=== PATIENT | female | born 1990 | race Caucasian/White ===

== ENCOUNTER 2017-04-15 08:15 | Emergency (ER) | END 2017-04-15 09:18 | disposition home or self-care (01) ==

== ENCOUNTER 2017-06-10 14:34 | Emergency (ER) | END 2017-06-10 18:49 | disposition home or self-care (01) ==

== ENCOUNTER 2018-06-05 10:41 | Emergency (ER) | payer MEDICAID ==
[~2018-06-05] VITALS: Ht 165.1 cm; Wt 90.0 kg
[~2018-06-05 10:41] MED LIST: ALBU8.5H8 INH; D-ME473S2 PO; DOXY100C PO; PRED20TA PO
[2018-06-05 10:52] VITALS: BP 136/62; PULSE 113; RESP 20; Ht 165.1 cm; Wt 90.0 kg
[2018-06-05] MEDS ORDERED: ACETAMINOPHEN 325 MG TAB PO ONE (12:00)
[2018-06-05] MEDS ORDERED: ACET500C5 PO (12:34)
[2018-06-05] MEDS ORDERED: OSEL75CA23 PO (12:34)
[2018-06-05] MEDS ORDERED: D-ME473S2 PO (12:36)
--- NOTE | 2018-06-05 12:36 | ERD ---
ER Documentation Chief Complaint Chief Complaint pt bib self with cough and runny nosex 3 days, 32 wks preg, no complaints HPI 27-year-old female presents with cough congestion body aches for the last 3 days. She is 36 weeks by dates. She denies abdominal pain, vaginal bleeding, shortness breath or chest pain. ROS All systems reviewed and are negative except as per history of present illness. Medications Home Meds Active Scripts Dextromethorphan Hb-Promethazine Hcl* (Promethazine DM* Syrup) 473 Ml Syrup, 5 ML PO Q6 PRN for COUGH for 5 Days, ML Prov:ANJELICA VAUGHN MD 06/05/18 Acetaminophen* (Tylophen*) 500 Mg Capsule, 1 CAP PO Q6H PRN for PAIN AND OR ELEVATED TEMP, #15 CAP Prov:ANJELICA VAUGHN MD 06/05/18 Oseltamivir Phosphate* (Tamiflu*) 75 Mg Capsule, 75 MG PO BID for 5 Days, CAP Prov:ANJELICA VAUGHN MD 06/05/18 Prednisone* (Prednisone*) 20 Mg Tab, 60 MG PO DAILY for 4 Days, TAB Prov:ROSIE JOHNSON 06/10/17 Albuterol Sulfate* (Proair HFA*) 8.5 Gm Hfa.aer.ad, 2 PUFF INH Q4, #1 INHALER Prov:ROSIE JOHNSON 06/10/17 Doxycycline* (Vibramycin*) 100 Mg Capsule, 100 MG PO BID for 7 Days, EA Prov:ROSIE JOHNSON 06/10/17 Dextromethorphan Hb-Promethazine Hcl* (Promethazine DM* Syrup) 473 Ml Syrup, 5 ML PO Q6 PRN for COUGH, #100 ML Prov:JAMES JENKINS PA-C 04/15/17 Allergies Allergies: Coded Allergies: No Known Allergy (Unverified , 06/05/18) PMhx/Soc History of Surgery: No Anesthesia Reaction: No Hx Neurological Disorder: No Hx Respiratory Disorders: No Hx Cardiac Disorders: No Hx Psychiatric Problems: No Hx Miscellaneous Medical Probl: No Hx Alcohol Use: No Hx Substance Use: No Hx Tobacco Use: No Smoking Status: Never smoker FmHx Family History: No diabetes, No coronary disease, No other Physical Exam Vitals Vital Signs Date Temp Pulse Resp B/P (MAP) Pulse Ox O2 O2 Flow FiO2 Time Delivery Rate 06/05/18 100.8 11:50 06/05/18 100.8 113 20 136/62 97 10:52 (86) Physical Exam Const: No acute distress Head: Atraumatic Eyes: Normal Conjunctiva ENT: Normal External Ears, Nose and Mouth. TMs normal. Nasal congestion. Neck: Full range of motion. No meningismus. Resp: Clear to auscultation bilaterally. Coarse cough without rales, wheezing or retractions. Cardio: Regular rate and rhythm, no murmurs Abd: Soft, non tender, non distended. Normal bowel sounds Skin: No petechiae or rashes Back: No midline or flank tenderness Ext: No cyanosis, or edema Neur: Awake and alert Psych: Normal Mood and Affect Results 24 hrs Current Medications Medications Dose Sig/Llay Start Time Status Last (Trade) Ordered Route PRN Stop Time Admin Dose Reason Admin 650 mg ONCE ONCE 06/05/18 DC 06/05/18 Acetaminophen PO 12:00 11:50 (Tylenol 06/05/18 12:01 Tab) Procedures/MDM Influenza swab positive for A. Patient presents with cough and congestion body aches and positive influenza. She has evidence of hypoxemia, rest or stress. She will treated with promethazine, Tylenol, Tamiflu given high risk status, primary care follow-up and return precautions. The patient was stable with no new complaints during the ER course. Clinically, there is no current evidence to suggest meningitis, sepsis, acute abdomen, pneumonia, stroke, acute coronary syndrome, pulmonary embolism, aortic dissection or any other emergent condition appearing to require further evaluation or hospitalization. Patient counseled regarding my diagnostic impression and care plan. Prior to discharge all questions answered. Pt agrees with treatment plan and understands strict return precautions. Pt is instructed to follow up with primary care provider within 24- 48 hours. Precautionary instructions provided including instructions to return to the ER if not improving or for any worsening or changing symptoms or concerns. Departure Diagnosis: Primary Impression: Influenza Condition: Stable Patient Instructions: Influenza (Adult) Additional Instructions: examen positivo para flu. es un virus que dura 2-7 hernandez. cheque otro vez en el proximo ramy para mas simptomas- vomito, dolor, katherine, problemas con respirando, o con martinez doctor primario. ANJELICA VAUGHN MD Jun 05, 2018 12:36
== END 2018-06-05 12:49 | disposition home or self-care (01) ==
LOC: FTE 10:41
DX: J10.1 Influenza due to other identified influenza virus with other respiratory manifestations (principal)
CPT/HCPCS: 87400; Z7502; Z7610; 99283

== ENCOUNTER 2018-06-26 18:07 | Inpatient (IN) | payer MEDICAID ==
[~2018-06-26] VITALS: Ht 165.1 cm; Wt 86.8 kg
[~2018-06-26 18:07] MED LIST changes: +ACET500C5 PO; +OSEL75CA23 PO; +PHENYLephrine 10 MG INJ ONE
[2018-06-26 18:40] VITALS: Ht 165.1 cm; Wt 86.8 kg
[2018-06-26 18:41] VITALS: BP 128/75; PULSE 98; RESP 19
[2018-06-26] MEDS ORDERED: LACTATED RINGER'S 1,000 ML IV SCH (18:42)
[2018-06-26] MEDS ORDERED: OXYTOCIN 30 UNITS/LR 500 ML IV PRN (19:00)
[2018-06-26] MEDS ORDERED: METHYLERGONOVINE 0.2 MG INJ IM PRN (19:00)
[2018-06-26] MEDS ORDERED: MISOPROSTOL 200 MCG TAB PR PRN (19:00)
[2018-06-26] MEDS ORDERED: CARBOPROST 250 MCG INJ IM PRN (19:00)
[2018-06-26] MEDS ORDERED: OXYTOCIN 30 UNITS/LR 500 ML IV SCH (19:00)
[2018-06-26] MEDS ORDERED: CEFAZOLIN 2 GM/50 ML (PMX) 50 ML IVPB SCH (19:00)
[2018-06-26] MEDS ORDERED: CITRIC ACID/NA CITRATE 30 ML CUP PO ONE (20:00)
--- NOTE | 2018-06-26 22:06 | PREAC ---
Date/Time of Note Date/Time of Note DATE: 06/26/18 TIME: 22:02 Anesthesia Eval and Record Evaluation Time Pre-Procedure Interview DATE: 06/26/18 TIME: 22:02 Age 27 Sex female NPO: 8 hrs Preoperative diagnosis repeat c section Planned procedure c section Past Medical History Past Medical History: Includes : : (2) Surgery & Anesthesia Issues No known issue Meds Anticoagulation: No Beta Anton within 24 hr: No Reason Beta Anton not given: Pt. not on B-Anton Active Scripts Dextromethorphan Hb-Promethazine Hcl* (Promethazine DM* Syrup) 473 Ml Syrup, 5 ML PO Q6 PRN for COUGH for 5 Days, ML Prov:ANJELICA VAUGHN MD 06/05/18 Acetaminophen* (Tylophen*) 500 Mg Capsule, 1 CAP PO Q6H PRN for PAIN AND OR ELEVATED TEMP, #15 CAP Prov:ANJELICA VAUGHN MD 06/05/18 Oseltamivir Phosphate* (Tamiflu*) 75 Mg Capsule, 75 MG PO BID for 5 Days, CAP Prov:ANJELICA VAUGHN MD 06/05/18 Prednisone* (Prednisone*) 20 Mg Tab, 60 MG PO DAILY for 4 Days, TAB Prov:ROSIE JOHNSON 06/10/17 Albuterol Sulfate* (Proair HFA*) 8.5 Gm Hfa.aer.ad, 2 PUFF INH Q4, #1 INHALER Prov:ROSIE JOHNSON 06/10/17 Doxycycline* (Vibramycin*) 100 Mg Capsule, 100 MG PO BID for 7 Days, EA Prov:ROSIE JOHNSON 06/10/17 Dextromethorphan Hb-Promethazine Hcl* (Promethazine DM* Syrup) 473 Ml Syrup, 5 ML PO Q6 PRN for COUGH, #100 ML Prov:JAMES JENKINS PA-C 04/15/17 Current Medications Lactated Ringer's 1,000 ml @ 125 mls/hr Q8H IV Last administered on 06/26/18at 18:55; Admin Dose 125 MLS/HR; Start 06/26/18 at 18:42 Cefazolin Sodium/ Dextrose 50 ml @ 100 mls/hr ONCE IVPB ; Start 06/26/18 at 19:00 Oxytocin/Lactated Ringer's 500 ml @ 125 mls/hr POST IV ; Start 06/26/18 at 19:00 Oxytocin/Lactated Ringer's 500 ml @ 0 mls/hr ONCE PRN IV .VAGINAL BLEEDING; Start 06/26/18 at 19:00 Methylergonovine Maleate (Methergine) 0.2 mg ONCE PRN IM .VAGINAL BLEEDING; Start 06/26/18 at 19:00 Carboprost Tromethamine (Hemabate) 250 mcg ONCE PRN IM .VAGINAL BLEEDING; Start 06/26/18 at 19:00 Misoprostol (Cytotec) 1,000 mcg ONCE PRN SC .VAGINAL BLEEDING; Start 06/26/18 at 19:00 Meds reviewed: No Allergies Coded Allergies: No Known Allergy (Unverified , 06/05/18) Allergies Reviewed: No Labs/Studies Labs Reviewed: Reviewed by anesthesiologist Result Diagram: 06/26/18 1845 Laboratory Tests 06/26/18 18:45 Blood Bank Test 06/26/18 18:45 Antibody Screen NEGATIVE Blood Type O POSITIVE Rh Immune Globulin Candidate NO test: Positive Studies: ECG (n/a), CXR (n/a) Pre-procedure Exam Last vitals Vital Signs Date Temp Pulse Resp B/P (MAP) Pulse Ox O2 O2 Flow FiO2 Time Delivery Rate 06/26/18 98.1 98 19 128/75 Room Air 18:41 (92) Airway: Adequate mouth opening Mallampati: Mallampati I Teeth: Normal Lung: Normal Heart: Normal ASA Physical Status ASA physical status: 2 Emergency: None Planned Anesthetic Neuraxial: Spinal Planned Pain Management Sub-arachniod narcotics Pre-operative Attestations Prior to commencing anesthesia and surgery, the patient was re-evaluated, there was verification of: *The patient's identity *The results of appropriate recent lab work and preoperative vital signs *The above evaluation not changing prior to induction *Anesthetic plan, risk benefits, alternative and complications discussed with patient/family; questions answered; patient/family understands, accepts and wishes to proceed. LOC LENNON MD Jun 26, 2018 22:06
[2018-06-26] MEDS ORDERED: KETOROLAC 30 MG INJ ONE (22:16)
[2018-06-26] MEDS ORDERED: OXYTOCIN 30 UNITS/LR 500 ML IV ONE (22:16)
[2018-06-26] MEDS ORDERED: METOCLOPRAMIDE 10 MG INJ ONE (22:16)
[2018-06-26] MEDS ORDERED: ONDANSETRON 4 MG INJ ONE (22:16)
[2018-06-26] MEDS ORDERED: morphine SULFATE/PF (10 MG/10 ML) INJ ONE (22:16)
--- NOTE | 2018-06-26 22:30 | HP ---
Date/Time of Note Date/Time of Note DATE: 06/26/18 TIME: 22:28 OB - History Hx of Present Free Text/Dictation 27 years old 2 para 1001 with single intrauterine at 39 weeks and previous delivery desires repeat delivery. She declined TOLAC. She states good movement. She denies nausea, vomiting, shortness of breath, chest pain, headache, visual changes, vaginal bleeding or LOF. Chief Complaint: Scheduled for repeat delivery Estimated Due Date: Jul 03, 2018 : 2 Para: 1 Spontaneous : 0 Therapeutic : 0 Care: Good Care Ultrasounds: Normal mid trimester US Obstetrical Complications: None Medical Complications: None Past Family/Social History * Past Medical, Surgical, Family and Obstetric Histories reviewed from chart. Blood Type: O+ Rubella: immune RPR/VDRL: Negative GBS Status: Negative HBsAG: Negative OB Admission Exam Vital Signs Vital Signs Vital Signs Date Temp Pulse Resp B/P (MAP) Pulse Ox O2 O2 Flow FiO2 Time Delivery Rate 06/26/18 98.1 98 19 128/75 Room Air 18:41 (92) Physical Exam HEENT: WNL Heart: Rhythm Normal Lungs: Clear Abdomen: WNL Extremities: Normal Membranes: Intact Heart Rate: 130's Accelerations: Accelerations Present Decelerations: No Decelerations Varibility: Moderate Last 72 hours Lab Results CBC & BMP 06/26/18 18:45 OB Assessment/Plan Other plan: 27 years old 2 para 1001 with previous delivery at 39 weeks desires repeat delivery. - FHR: No sign of metabolic acidosis- Category I - Continuous EFM, toco - CBC, blood type and screen - Please see the orders - O+/Rubella: Immune - GBS: Negative The risk of delivery including but not limited to bleeding, infection, injury to other organs (bowel, bladder, ureter, vessels, nerves), injury to fetus, blood transfusion, blood transfusion related infection, risk of anesthesia, adhesion, needs for future , removal of uterus or any other indicated surgery was discussed with the patient and her family. She expressed understanding. All of her questions were answered. She signed the informed consent. PHYSICIAN'S VERIFICATION OF INFORMED CONSENT The patient was counseled regarding the procedure, its indications, risks, potential complications and alternatives and any questions were answered. Consent was obtained. PLANNED PROCEDURE/TREATMENT: delivery with possible using vacuum/forceps and any other indicated surgery PHYSICIAN'S VERIFICATION OF INFORMED CONSENT FOR BLOOD TRANSFUSION: There is a reasonable possibility that blood transfusion will be necessary as a result of the patient's procedure. I have discussed the following with the patient/patient's legal field sales representative: An explanation of the benefits and risk s of the transfusion of blood or blood products and the possible alternatives. All questions have been answered to the patient's satisfaction. INFORMED CONSENT:The patient has been informed of: The nature of the proposed care, treatment, services, medications, interventions or procedures. Potential benefits, risks or side effects, including potential problems related to recuperation. The likelihood of achieving care treatment and service goals. Reasonable alternatives to the proposed care, treatment and service. The relevant risks, benefits and side effects related to alternatives, inclu ding the possible results of not receiving care, treatment and services. When indicated, any limitations on the confidentiality of information learned from or about the patient. If appropriate, the risks, benefits and alternatives of the drugs to be used for sedation/analgesia including moderate sedation. If appropriate, patient has been provided information on the risks, benefits and alternatives to the transfusion of blood and/or blood products. If appropriate, patient has been provided information regarding the [employer] Blood Act. EUGENIO SIMPSON Jun 26, 2018 22:30
--- NOTE | 2018-06-26 23:43 | OPR ---
Operative Report Planned Procedure Procedure date Jun 26, 2018 Procedure(s) Repeat low transverse delivery Performed by see signature line [employer] Repairer: SIMONA MOON MD Anesthesiologist: LOC LENNON MD Pre-procedure diagnosis 27 years old 2 para 1001 with previous delivery at 39 weeks desires repeat delivery. [id number] Anesthesia Type: [id number] spinal Post-Procedure Post-procedure diagnosis 27 years old 2 para 1001 with previous delivery at 39 weeks desires repeat delivery. Findings 1. Normal uterus, fallopian tubes and ovaries 2. Viable female in cephalic presentation. 9 at one minute and 9 in 5 minutes. Weight: 7 pounds 9 ounces. Time of delivery: 22:51 3. Placenta with three vessel cord 4. Amniotic fluid - Clear Estimated Blood Loss: 500 - 600 mls Specimen(s) none Grafts/Implant(s) none Complication(s) none Pt Condition post procedure: stable Disposition: PACU Procedure Description INDICATION AND HISTORY: A 27 years old 2 para 1001 with previous delivery at 39 weeks desires repeat delivery. The risk of delivery including but not limited to bleeding, infection, injury to other organs (bowel, bladder, ureter, vessels, nerves), injury to fetus, blood transfusion, blood transfusion related infection, risk of anesthesia, adhesion, needs for future , removal of uterus or any other indicated surgery was discussed with the patient and her family. She expressed understanding. All of her questions were answered. She signed the informed consent. DESCRIPTION OF OPERATION: The patient was taken to the operating room, where she was identified and the procedure was verified. The patient received two gram of Ancef 30 minutes prior to surgery. Spinal anesthesia was placed. The patient placed in the dorsal supine position with a left tilt. The heart rate was 130 bpm. The patient was then prepped and draped in the normal sterile fashion. A Pfannenstiel skin incision was made and carried down to the fascia with knife. The fascia was incised in the midline and the fascial incision was carried laterally with knife. The superior portion of the fascial incision was then grasped with Aaron clamps and tented up and dissected off the underlying rectus muscle with sharp dissection. The lower portion of the fascial incision was then made in a similar fashion. The rectus muscle was and the peritoneum was entered. The peritoneal incision was then stretched and an Ion retractor was inserted. Then, an incision was made in the lower uterine segment in a transverse fashion with a knife and extended bluntly. Vacuum used to assist delivery of head, the was delivered atraumatically in cephalic presentation with the above findings. The umbilical cord was clamped and cut. The neonatology resuscitation team was present and the baby was handed to them. A cord blood sample was obtained for further evaluation. The placenta and membrane, which appeared normal were Removed. The uterus was exteriorized and cleared of all clot and debris. The uterus was then closed in a two layer fashion with 0-Monocryl. At the time of closure, hemostasis was noted. The gutters were irrigated. The peritoneum was reapproximated with 3-0 Vicryl. The muscle was reapproximated with 3-0 Vicryl. The fascia was approximated with 0- Vicryl in a running fashion. The subcutaneous tissue was re approximated with 3- 0 vicryl. The skin was closed with 4-0 Monocryl. All instruments, sponges and needle counts were correct x3. The patient tolerated the procedure well. She transferred to the recovery room in stable condition. EUGENIO SIMPSON Jun 26, 2018 23:43
[2018-06-27] MEDS ORDERED: DIPHENHYDRAMINE 50 MG INJ IV PRN ×2
[2018-06-27] MEDS ORDERED: ONDANSETRON 4 MG INJ IV PRN ×2
[2018-06-27] MEDS ORDERED: morphine (1 MG/ML) 10ML SYRINGE IV PRN ×3
[2018-06-27] MEDS ORDERED: morphine 2 MG INJ IV PRN ×3
[2018-06-27] MEDS ORDERED: KETOROLAC 30 MG INJ IV PRN
[2018-06-27] MEDS ORDERED: NALOXONE (0.4 MG/ML) INJ IV PRN
[2018-06-27 02:00] VITALS: BP 111/57; PULSE 77; RESP 19
[2018-06-27] MEDS: DEXTROSE 5%-LR 1,000 ML IV SCH ×3 (02:02→14:12)
[2018-06-27] MEDS ORDERED: OXYTOCIN 30 UNITS/LR 500 ML IV SCH (02:02)
[2018-06-27] MEDS ORDERED: CARBOPROST 250 MCG INJ IM PRN (02:30)
[2018-06-27] MEDS ORDERED: OXYTOCIN 30 UNITS/LR 500 ML IV PRN (02:30)
[2018-06-27] MEDS ORDERED: METHYLERGONOVINE 0.2 MG TAB PO PRN (02:30)
[2018-06-27] MEDS ORDERED: MISOPROSTOL 200 MCG TAB PR PRN (02:30)
[2018-06-27] MEDS ORDERED: METHYLERGONOVINE 0.2 MG INJ IM PRN (02:30)
[2018-06-27] MEDS ORDERED: LANOLIN HPA 1 PKT TOP PRN (02:30)
[2018-06-27 03:00] VITALS: BP 107/52; PULSE 75; RESP 19
--- NOTE | 2018-06-27 06:53 | PAC ---
Date/Time of Note Date/Time of Note DATE: 06/27/18 TIME: 06:53 Post-Anesthesia Notes Post-Anesthesia Note Last documented vital signs Vital Signs Date Temp Pulse Resp B/P (MAP) Pulse Ox O2 O2 Flow FiO2 Time Delivery Rate 06/27/18 98.0 75 19 107/52 96 Room Air 03:00 (70) Activity: WNL Respiratory function: WNL Cardiovascular function: WNL Mental status: Baseline Pain reasonably controlled: Yes Hydration appropriate: Yes Nausea/Vomiting absent: No LOC LENNON MD Jun 27, 2018 06:53
--- NOTE | 2018-06-27 06:54 | OPPN ---
Date/Time of Note Date/Time of Note DATE: 06/27/18 TIME: 06:53 Anesthesia Follow up Anesthesia Follow up Last documented vital signs Vital Signs Date Temp Pulse Resp B/P (MAP) Pulse Ox O2 O2 Flow FiO2 Time Delivery Rate 06/27/18 98.0 75 19 107/52 96 Room Air 03:00 (70) Respiratory function: WNL Cardiovascular function: WNL Comments A 27 year female s/p duramorph for post op apin POD #1 is fine. No pain, headache, itching, N/V. neural deficit. LOC LENNON MD Jun 27, 2018 06:54
[2018-06-27 08:25] VITALS: BP 117/63; PULSE 80; RESP 18
[2018-06-27] MEDS ORDERED: DIPHTH/TET/ACEL PERTUSS (ADULT) 0.5 ML VIAL IM* ONE (11:00)
[2018-06-27 11:55] VITALS: BP 117/68; PULSE 83; RESP 18
[2018-06-27 16:40] VITALS: BP 102/60; PULSE 85; RESP 18
--- NOTE | 2018-06-27 17:07 | PN ---
Date/Time of Note Date/Time of Note DATE: 06/27/18 TIME: 17:03 OB Subjective Subjective Subjective passing flatus but no B.M still have marie catheter not oob yet OB Objective Objective Objective vss afebrile abdomen soft wound dry lochia min calf neg for tenderness OB Assessment/Plan Other Assessment: s/p C/S #1 table Plan: Expectant Management GERALD GONSALES MD Jun 27, 2018 17:07
[2018-06-27 20:15] VITALS: BP 114/68; PULSE 82; RESP 19
[2018-06-27] MEDS: IBUPROFEN 800 MG TAB PO SCH (23:06)
[2018-06-27] MEDS: HYDROCODONE/APAP (5/325) TAB PO SCH (23:06)
[2018-06-27] MEDS: SENNA/DOCUSATE NA (8.6MG/50MG) TAB PO SCH (23:09)
[2018-06-28] MEDS ORDERED: HYDROCODONE/APAP (5/325) TAB PO PRN
[2018-06-28] MEDS: DEXTROSE 5%-LR 1,000 ML IV SCH ×2 (01:16→02:02)
[2018-06-28 04:30] VITALS: BP 106/58; PULSE 72; RESP 19
[2018-06-28] MEDS ORDERED: IBUPROFEN 800 MG TAB PO SCH (06:00)
[2018-06-28] MEDS ORDERED: HYDROCODONE/APAP (5/325) TAB PO SCH (06:00)
[2018-06-28] MEDS: HYDROCODONE/APAP (5/325) TAB PO SCH ×3 (06:11→23:31)
[2018-06-28] MEDS: IBUPROFEN 800 MG TAB PO SCH ×3 (06:11→23:30)
[2018-06-28 09:00] VITALS: BP 107/69; PULSE 86; RESP 18
[2018-06-28] MEDS: SENNA/DOCUSATE NA (8.6MG/50MG) TAB PO SCH ×2 (09:18→23:30)
[2018-06-28 16:00] VITALS: BP 111/64; PULSE 73; RESP 18
--- NOTE | 2018-06-28 17:19 | PN ---
Date/Time of Note Date/Time of Note DATE: 06/28/18 TIME: 17:17 OB Subjective Subjective Subjective POD#2 Patient is doing well. She denies nausea, vomiting, shortness of breath, chest pain, headache. She has been ambulating without difficulty, tolerating regular diet. Pain is well controlled on current medications OB Objective Objective Objective VS - Last 72 Hours, by Label Date Temp Pulse Resp B/P (MAP) Pulse Ox O2 O2 Flow FiO2 Time Delivery Rate 06/28/18 97.5 86 18 107/69 Room Air 09:00 (82) 06/28/18 98.1 72 19 106/58 Room Air 04:30 (74) 06/27/18 98.4 82 19 114/68 Room Air 20:15 (83) 06/27/18 99.2 85 18 102/60 Room Air 16:40 (74) 06/27/18 98.7 83 18 117/68 97 Room Air 11:55 (84) 06/27/18 98.2 80 18 117/63 98 Room Air 08:25 (81) 06/27/18 98.0 75 19 107/52 96 Room Air 03:00 (70) 06/27/18 98.2 77 19 111/57 97 Room Air 02:00 (75) 06/26/18 98.1 98 19 128/75 Room Air 18:41 (92) General: AAO X 3, comfortable, NAD, appropriate mood and affect. ABD: +BS. Soft, non-tender. Uterus 2 cm below umbilicus Incision: Clear, dry, intact. No erythema, drainage or induration. Flank: No CVA tenderness (B/L) LE: Mild edema. No clubbing, cyanosis, thigh or calf tenderness (B/L). Homans 'sign is negative OB Assessment/Plan Other plan: 27 years old s/p repeat delivery at 39 weeks. POD#2 - AF, VSS - Baby is doing well, at bed side. She is bonding well - Contraception methods with R/B/A/FR discussed - Continue care - Discharge home tomorrow - Rx and instruction given - Follow up in one and 6 weeks EUGENIO SIMPSON Jun 28, 2018 17:19
--- NOTE | 2018-06-28 17:20 | DS ---
Date/Time of Note Date/Time of Note DATE: 06/28/18 TIME: 17:19 Obstetrical Discharge Record Final Diagnosis Final Diagnosis: Term delivered Other Final Diagnosis 27 years old s/p repeat delivery at 39 weeks. POD#2. His course was unremarkable. She is ambulating and tolerating regular diet. She is voiding without difficulty. Pain is well controlled on current medication. - AF, VSS - Baby is doing well, at bed side. She is bonding well - Contraception methods with R/B/A/FR discussed - Continue care - Discharge home tomorrow - Rx and instruction given - Follow up in one and 6 weeks Section Section: Repeat Condition on Discharge Physical Assessment Last Vitals: Vital Signs Date Temp Pulse Resp B/P (MAP) Pulse Ox O2 O2 Flow FiO2 Time Delivery Rate 06/28/18 97.5 86 18 107/69 Room Air 09:00 (82) 06/27/18 97 11:55 Voiding: Yes Bowel Movement: Yes Breast: Soft, non-tender Fundus: Firm Calf Tenderness: No Patient Condition: Stable EUGENIO SIMPSON Jun 28, 2018 17:20
[2018-06-28 20:30] VITALS: BP 131/81; PULSE 86; RESP 19
[2018-06-28] MEDS ORDERED: MAGNESIUM HYDROXIDE 30ML CUP PO ONE (21:00)
[2018-06-29 04:15] VITALS: BP 108/73; PULSE 74; RESP 19
[2018-06-29] MEDS: IBUPROFEN 800 MG TAB PO SCH ×2 (06:02→14:35)
[2018-06-29] MEDS: HYDROCODONE/APAP (5/325) TAB PO SCH ×2 (06:02→14:35)
[2018-06-29 08:00] VITALS: BP 113/61; PULSE 76; RESP 18
[2018-06-29] MEDS: SENNA/DOCUSATE NA (8.6MG/50MG) TAB PO SCH (08:37)
[2018-06-29] MEDS ORDERED: MEASLES,MUMPS,RUBELLA VACCINE INJ SC* ONE (09:00)
[2018-06-29] MEDS ORDERED: DIPHTH/TET/ACEL PERTUSS (ADULT) 0.5 ML VIAL IM* ONE (09:00)
[2018-06-29 13:20] VITALS: BP 115/67; RESP 18
--- NOTE | 2018-06-30 15:08 | DELSUM ---
Delivery Summary A-C Datetime Report Generated by CPN: 06/30/2018 15:08 DELIVERY PERSONNEL Sports Bookmaker: Willis, Yudelka MATERNAL INFORMATION Delivery Anesthesia: Spinal Medications in Delivery: SEE ANESTHESIA RECORD Delivery QBL (ml): 600 Placenta Cultured: No Maternal Complications: None LABOR SUMMARY EDC: 07/03/2018 00:00 No. Babies in Womb: 1 Attempted: No Labor Anesthesia: SPINAL LABOR INFORMATION Reason for Induction: Not Applicable Oxytocin: N/A Group B Beta Strep: Negative Antibiotics # of Doses: 1 Antibiotics Time of Last Dose: 06/26/2018 22:24 Steroids Given: None Reason Steroids Not Administered: Not Applicable MEMBRANES Membranes Rupture Method: Artificial Rupture of Membranes: 06/26/2018 22:48 Length of Rupture (hr): 0.05 Amniotic Fluid Color: Clear Amniotic Fluid Amount: Small Amniotic Fluid Odor: None STAGES OF LABOR Stage 3 hr: 0 Stage 3 min: 1 VAGINAL DELIVERY Episiotomy: None Laceration Extension: N/A Laceration Type: None Laceration Repair: Not Applicable CSECTION DELIVERY Primary Indication: Repeat Elective CSection Urgency: Elective CSection Incidence: Repeat Labor: N/A Elective: N/A CSection Incision: Lower Uterine Transverse BABY A INFORMATION Delivery Date/Time: 06/26/2018 22:51 Method of Delivery: Born in Route : No : N/A Forceps: N/A Vacuum Extraction: Successful Shoulder Dystocia : N/A ASSISTED DELIVERY BABY A Vacuum Number of Pulls: 4 Vacuum Number of PopOffs: 3 Vacuum Manager Contract: [facility] Total Time Vacuum Applied: 63 SECONDS Vacuum/Forceps Comment: PRESSURE OBTAINED BY MD SHOULDER DYSTOCIA BABY A Infant Delivery Date/Time: 06/26/2018 22:51 PRESENTATION/POSITION BABY A Presentation: Cephalic Cephalic Presentation: Vertex Breech Presentation: N/A PLACENTA INFORMATION BABY A Placenta Delivery Time : 06/26/2018 22:52 Placenta Method of Delivery: Manual Removal Placenta Status: Delivered SCORES BABY A Heart Rate 1 min: >100 bpm Resp Effort 1 min: Good Cry Reflex Irritability 1 min: Cough/Sneeze/Pulls Away Muscle Tone 1 min: Active Motion Color 1 min: Body [place], Extremit Blue Resuscitation Effort 1 min: Tactile Stimulation SCORE 1 MIN: 9 Heart Rate 5 min: >100 bpm Resp Effort 5 min: Good Cry Reflex Irritability 5 min: Cough/Sneeze/Pulls Away Muscle Tone 5 min: Active Motion Color 5 min: Body [place], Extremit Blue Resuscitation Effort 5 min: Tactile Stimulation SCORE 5 MIN: 9 INFORMATION BABY A Gestational Age at Delivery: 39.0 Gestational Status: Full Term- 39- 40.6 Weeks Infant Outcome : Liveborn Infant Condition : Stable Sex: Female IDENTIFICATION/MEDS BABY A ID Band Number: [id number] ID Band Location: Right Leg; Left Arm Sensor Applied: Yes Sensor Number: [id number] Sensor Location : Cord Clamp Vitamin K Given : Not Given Erythromycin Given: Not Given WEIGHT/LENGTH BABY A Birthweight (gm): 3425 Weight (lb): 7 Weight (oz): 9 Length (in): 19.00 Infant Length (cm): 48.26 CORD INFORMATION BABY A No. Cord Vessels: 3 Nuchal Cord : N/A Cord Blood Taken: Yes Suction: Mouth; Nose ASSESSMENT BABY A Infant Complications: None Physical Findings at Delivery: Within Normal Limits Respirations: Appears Normal [place] Installer/ALS Called : No Infant Care By: GARCÍA OLEA Transferred To: Remains with Mother
== END 2018-06-29 15:07 | disposition home or self-care (01) | DRG 788 ==
LOC: L-D 18:07 → PP1 06-27 01:57
PROVIDERS: ADMIT Obstetrics & Gynecology; ATTEND Obstetrics & Gynecology
PROC: 4A1HXCZ Monitoring of Products of Conception, Cardiac Rate, External Approach (ICD-10-PCS; 2018-06-26)
PROC: 10D00Z1 Extraction of Products of Conception, Low, Open Approach (ICD-10-PCS; principal; 2018-06-26 20:00)
DX: O34.211 Maternal care for low transverse scar from previous cesarean delivery (principal); Z3A.39 39 weeks gestation of pregnancy; Z37.0 Single live birth
CPT/HCPCS: 85025; 85610; 85730; 86592; 86850; 86900; 86901; 87340; 99464; J0690; J1885; J2274; J2405; J2590; J2765; J7120; J7121